=== PATIENT | female | born 1975 | race Caucasian/White ===

== ENCOUNTER 2017-10-17 10:24 | Emergency (ER) | payer MEDICAID ==
[~2017-10-17] VITALS: Ht 165.1 cm; Wt 67.9 kg
[2017-10-17 10:27] VITALS: BP 125/83
== END 2017-10-17 11:23 | disposition home or self-care (01) ==
LOC: ED 11:20
DX: L03.211 Cellulitis of face (principal); J45.909 Unspecified asthma, uncomplicated
CPT/HCPCS: 99283

== ENCOUNTER 2021-04-18 23:56 | Inpatient (IN) | payer MEDICAID, OTHER ==
[~2021-04-18] VITALS: Ht 165.1 cm; Wt 91.9 kg
[2021-04-19 00:53] LABS: BASOPHILS % (AUTO) 1 % (0-1); EOSINOPHILS % (AUTO) 1 % (1-7); LYMPHOCYTES % (AUTO) 20 % (22-44); MEAN CORPUSCULAR HEMOGLOBIN 30.4 pg (27.0-34.8); MEAN CORPUSCULAR HGB CONC 33.5 g/dL (32.4-35.8); MEAN PLATELET VOLUME 7.7 fL (7.4-10.4); MONOCYTES % (AUTO) 8 % (2-9); NEUTROPHILS % (AUTO) 70 % (42-75); PLATELET COUNT 460 x10^3/uL (130-400); RED BLOOD COUNT 5.13 x10^6/uL (3.82-5.3); RED CELL DISTRIBUTION WIDTH 14.7 % (9.6-15.2)
[2021-04-19 00:54] LABS: MD NO
[2021-04-19 00:55] LABS: ANION GAP 6 mmol/L (5-15); CHLORIDE 108 mmol/L (98-107)
--- NOTE | 2021-04-19 01:13 | NUR ---
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
--- NOTE | 2021-04-19 01:39 | NUR ---
erp at bedside for assessment
[2021-04-19] MEDS ORDERED: CEFTRIAXONE 2 GM in DEXTROSE 5% 50 ML IVPB ONE (02:00)
[2021-04-19] MEDS ORDERED: SODIUM CHLORIDE 0.9% 1,000ML IVBOLUS ONE (02:00)
[2021-04-19] MEDS ORDERED: VANCOMYCIN PER PHARMACY MC PRN ×2 (02:00→06:00)
[2021-04-19] MEDS ORDERED: VANCOMYCIN 2,100 MG in SODIUM CHLORIDE 0.9% 500 ML IV ONE (02:30)
--- NOTE | 2021-04-19 02:51 | NUR ---
piv established, 1st set of bc drawn. unable to get another set at this time. awaiting lab to draw. ns fluids running
--- NOTE | 2021-04-19 03:07 | NUR ---
ABX HUNG AFTER BLOOD CULTURES
[2021-04-19] MEDS ORDERED: ALBU1.25 NEB (03:08)
[2021-04-19] MEDS ORDERED: HYDROcodone/APAP 5/325 TABLET ONE (03:25)
[2021-04-19] MEDS ORDERED: HYDROcodone/APAP 5/325 TABLET PO ONE (03:30)
--- NOTE | 2021-04-19 03:53 | NUR ---
pt states she takes tylenol often and is not allergic. report given to val ospina
--- NOTE | 2021-04-19 04:06 | NUR ---
jahaira (friend)- ok to give info too - [phone]
[2021-04-19 04:55] VITALS: BP 120/82
[2021-04-19] MEDS ORDERED: ACETAMINOPHEN 325 MG TABLET PO PRN (06:00)
[2021-04-19] MEDS: NICOTINE 14MG/24 HR PATCH.TD24 TD SCH (06:00)
[2021-04-19] MEDS ORDERED: PHARMACOKINETIC MONITORING MC PRN (06:00)
[2021-04-19] MEDS ORDERED: LABETALOL 5MG/ML, 20ML IVPush PRN (06:00)
[2021-04-19] MEDS ORDERED: PHARMACOKINETIC CONSULTATION MC ONE (06:00)
[2021-04-19] MEDS ORDERED: ONDANSETRON 2MG/ML, 2ML IVPush PRN (06:00)
[2021-04-19] MEDS ORDERED: HYDROmorphone 2 MG/ML, 1ML IVPush PRN (06:00)
[2021-04-19 06:34] LABS: ALBUMIN 3.1 g/dL (3.4-5.0); BILIRUBIN, DIRECT 0.1 mg/dL (0.1-0.2); BILIRUBIN,INDIRECT 0.3 mg/dL (0.0-2.0); BILIRUBIN,TOTAL 0.4 mg/dL (0.2-1.0); TOTAL PROTEIN 6.8 g/dL (6.4-8.2)
[2021-04-19 06:44] VITALS: BP 114/80
[2021-04-19] MEDS: SENNA/DOCUSATE TABLET PO SCH (08:10)
[2021-04-19] MEDS: ENOXAPARIN 40 MG/0.4 ML SQ SCH (08:10)
[2021-04-19] MEDS: HYDROcodone/APAP 5/325 TABLET PO PRN (11:44)
[2021-04-19 13:07] VITALS: BP 106/72
[2021-04-19] MEDS: SODIUM CHLORIDE 0.9% 1,000 ML IV SCH (13:29)
[2021-04-19 16:24] LABS: AMPHETAMINE SCREEN, URINE Positive (Negative); BARBITURATE SCREEN, URINE Negative (Negative); BENZODIAZEPINE SCREEN, URINE Negative (Negative); CANNABINOID SCREEN, URINE Negative (Negative); COCAINE SCREEN, URINE Negative (Negative); METHADONE SCREEN, URINE Negative (Negative); OPIATE SCREEN, URINE Positive (Negative)
[2021-04-19] MEDS: VANCOMYCIN 1,700 MG in SODIUM CHLORIDE 0.9% 250 ML IV SCH (17:40)
[2021-04-19 20:46] VITALS: BP 120/81
[2021-04-19] MEDS ORDERED: VANCOMYCIN 1,600 MG in SODIUM CHLORIDE 0.9% 250 ML IV SCH (21:00)
[2021-04-20 00:55] VITALS: BP 92/50
[2021-04-20] MEDS: CEFTRIAXONE 2 GM in DEXTROSE 5% 50 ML IVPB SCH (03:00)
[2021-04-20] MEDS: SODIUM CHLORIDE 0.9% 1,000 ML IV SCH ×2 (03:05→15:56)
[2021-04-20] MEDS: VANCOMYCIN 1,700 MG in SODIUM CHLORIDE 0.9% 250 ML IV SCH ×2 (04:12→15:56)
[2021-04-20] MEDS: HYDROcodone/APAP 5/325 TABLET PO PRN ×2 (04:44→14:22)
[2021-04-20] MEDS: NICOTINE 14MG/24 HR PATCH.TD24 TD SCH (06:00)
[2021-04-20 06:44] VITALS: BP 93/77
[2021-04-20] MEDS: ENOXAPARIN 40 MG/0.4 ML SQ SCH (07:44)
[2021-04-20] MEDS: SENNA/DOCUSATE TABLET PO SCH (07:50)
[2021-04-20 09:52] LABS: BASOPHILS % (AUTO) 1 % (0-1); EOSINOPHILS % (AUTO) 2 % (1-7); LYMPHOCYTES % (AUTO) 28 % (22-44); MEAN CORPUSCULAR HEMOGLOBIN 30.1 pg (27.0-34.8); MEAN CORPUSCULAR HGB CONC 32.6 g/dL (32.4-35.8); MEAN PLATELET VOLUME 7.7 fL (7.4-10.4); MONOCYTES % (AUTO) 12 % (2-9); NEUTROPHILS % (AUTO) 58 % (42-75); PLATELET COUNT 336 x10^3/uL (130-400); RED BLOOD COUNT 4.67 x10^6/uL (3.82-5.3); RED CELL DISTRIBUTION WIDTH 15.1 % (9.6-15.2)
[2021-04-20 09:56] LABS: MD NO
[2021-04-20 10:03] LABS: ANION GAP 6 mmol/L (5-15); CALCIUM 8.2 mg/dL (8.5-10.1); CHLORIDE 110 mmol/L (98-107); CREATININE 0.96 mg/dL (0.55-1.02)
[2021-04-20 13:18] VITALS: BP 124/90
[2021-04-20 19:16] VITALS: BP 119/88
[2021-04-21 00:10] VITALS: BP 129/92
[2021-04-21] MEDS: CEFTRIAXONE 2 GM in DEXTROSE 5% 50 ML IVPB SCH (03:06)
[2021-04-21 03:39] LABS: BASOPHILS % (AUTO) 1 % (0-1); EOSINOPHILS % (AUTO) 2 % (1-7); LYMPHOCYTES % (AUTO) 21 % (22-44); MEAN CORPUSCULAR HEMOGLOBIN 30.2 pg (27.0-34.8); MEAN CORPUSCULAR HGB CONC 32.2 g/dL (32.4-35.8); MEAN PLATELET VOLUME 7.8 fL (7.4-10.4); MONOCYTES % (AUTO) 13 % (2-9); NEUTROPHILS % (AUTO) 64 % (42-75); PLATELET COUNT 346 x10^3/uL (130-400); RED BLOOD COUNT 4.71 x10^6/uL (3.82-5.3); RED CELL DISTRIBUTION WIDTH 15.5 % (9.6-15.2)
[2021-04-21 03:48] LABS: ANION GAP 7 mmol/L (5-15); CALCIUM 8.4 mg/dL (8.5-10.1); CHLORIDE 111 mmol/L (98-107); CREATININE 0.92 mg/dL (0.55-1.02)
[2021-04-21 03:55] LABS: MD NO
[2021-04-21] MEDS: SODIUM CHLORIDE 0.9% 1,000 ML IV SCH (04:15)
[2021-04-21] MEDS: NICOTINE 14MG/24 HR PATCH.TD24 TD SCH (06:00)
[2021-04-21 06:28] VITALS: BP 123/89
[2021-04-21] MEDS: ENOXAPARIN 40 MG/0.4 ML SQ SCH (07:55)
[2021-04-21] MEDS: SENNA/DOCUSATE TABLET PO SCH (07:55)
[2021-04-21] MEDS ORDERED: SODIUM CHLORIDE NASAL SPRAY 45ML BOTTLE NAS PRN (11:00)
[2021-04-21] MEDS: HYDROcodone/APAP 5/325 TABLET PO PRN (12:47)
[2021-04-21 13:56] VITALS: BP 117/86
[2021-04-21] MEDS ORDERED: VANCOMYCIN 1,700 MG in SODIUM CHLORIDE 0.9% 250 ML IV SCH ×2 (16:00→22:00)
[2021-04-21 19:25] VITALS: BP 119/88
[2021-04-22 02:06] VITALS: BP_SYST 119; BP_SYST 137; BP_DIAS 88; BP_DIAS 93
[2021-04-22] MEDS: CEFTRIAXONE 2 GM in DEXTROSE 5% 50 ML IVPB SCH (02:28)
[2021-04-22] MEDS: NICOTINE 14MG/24 HR PATCH.TD24 TD SCH (05:51)
[2021-04-22 06:17] LABS: BASOPHILS % (AUTO) 1 % (0-1); EOSINOPHILS % (AUTO) 2 % (1-7); LYMPHOCYTES % (AUTO) 24 % (22-44); MEAN CORPUSCULAR HEMOGLOBIN 30.6 pg (27.0-34.8); MEAN CORPUSCULAR HGB CONC 33.6 g/dL (32.4-35.8); MEAN PLATELET VOLUME 7.6 fL (7.4-10.4); MONOCYTES % (AUTO) 13 % (2-9); NEUTROPHILS % (AUTO) 60 % (42-75); PLATELET COUNT 347 x10^3/uL (130-400); RED BLOOD COUNT 4.47 x10^6/uL (3.82-5.3); RED CELL DISTRIBUTION WIDTH 14.9 % (9.6-15.2)
[2021-04-22 06:19] LABS: MD NO
[2021-04-22 06:26] LABS: ANION GAP 6 mmol/L (5-15); CALCIUM 8.4 mg/dL (8.5-10.1); CHLORIDE 111 mmol/L (98-107)
[2021-04-22 07:16] VITALS: BP 132/94
[2021-04-22] MEDS: SENNA/DOCUSATE TABLET PO SCH (07:46)
[2021-04-22] MEDS: ENOXAPARIN 40 MG/0.4 ML SQ SCH (07:46)
[2021-04-22] MEDS: HYDROcodone/APAP 5/325 TABLET PO PRN ×2 (12:47→21:04)
[2021-04-22 14:01] VITALS: BP 126/88
[2021-04-22] MEDS ORDERED: VANCOMYCIN 1,700 MG in SODIUM CHLORIDE 0.9% 250 ML IV SCH (16:00)
[2021-04-22 19:18] VITALS: BP 123/87
[2021-04-23 00:45] VITALS: BP 139/98
[2021-04-23] MEDS: CEFTRIAXONE 2 GM in DEXTROSE 5% 50 ML IVPB SCH (03:26)
[2021-04-23] MEDS: NICOTINE 14MG/24 HR PATCH.TD24 TD SCH (05:13)
[2021-04-23 06:00] LABS: CHLORIDE 110 mmol/L (98-107)
[2021-04-23 06:02] LABS: ANION GAP 7 mmol/L (5-15); CALCIUM 8.5 mg/dL (8.5-10.1); CREATININE 0.77 mg/dL (0.55-1.02)
[2021-04-23 08:04] VITALS: BP 148/105
[2021-04-23] MEDS: SENNA/DOCUSATE TABLET PO SCH (08:14)
[2021-04-23] MEDS: ENOXAPARIN 40 MG/0.4 ML SQ SCH (08:14)
[2021-04-23] MEDS: LEVOFLOXACIN 750 MG TABLET PO SCH (09:11)
[2021-04-23 09:14] VITALS: BP 133/89
[2021-04-23 12:02] VITALS: BP 131/93
[2021-04-23 18:58] VITALS: BP 137/97
[2021-04-24 00:15] VITALS: BP 142/94
[2021-04-24] MEDS: NICOTINE 14MG/24 HR PATCH.TD24 TD SCH (05:08)
[2021-04-24 06:25] VITALS: BP 148/103
[2021-04-24] MEDS: SENNA/DOCUSATE TABLET PO SCH (09:02)
[2021-04-24] MEDS: ENOXAPARIN 40 MG/0.4 ML SQ SCH (09:02)
[2021-04-24] MEDS: LEVOFLOXACIN 750 MG TABLET PO SCH (09:02)
[2021-04-24] MEDS ORDERED: ALBUTEROL SULFATE 2.5 MG/3 ML NPPB PRN (11:00)
[2021-04-24 12:12] VITALS: BP 138/88
[2021-04-24] MEDS: BUDESONIDE 0.5 MG/2 ML INHA INH SCH (19:10)
[2021-04-24] MEDS: ALBUTEROL SULFATE 2.5 MG/3 ML NPPB SCH (19:10)
[2021-04-24 19:29] VITALS: BP 143/88
[2021-04-24 20:19] VITALS: BP 154/98
[2021-04-25 00:37] VITALS: BP 123/79
[2021-04-25] MEDS: NICOTINE 14MG/24 HR PATCH.TD24 TD SCH (05:09)
[2021-04-25 06:40] VITALS: BP 121/68
[2021-04-25] MEDS: BUDESONIDE 0.5 MG/2 ML INHA INH SCH (08:15)
[2021-04-25] MEDS: ALBUTEROL SULFATE 2.5 MG/3 ML NPPB SCH ×2 (08:15→15:15)
[2021-04-25] MEDS: SENNA/DOCUSATE TABLET PO SCH (08:49)
[2021-04-25] MEDS: ENOXAPARIN 40 MG/0.4 ML SQ SCH (08:50)
[2021-04-25] MEDS: LEVOFLOXACIN 750 MG TABLET PO SCH (08:50)
[2021-04-25 12:01] VITALS: BP 132/78
[2021-04-25] MEDS ORDERED: LACT1TAB13 PO (14:44)
[2021-04-25] MEDS ORDERED: LEVO750T6 PO (14:44)
== END 2021-04-25 18:19 | disposition home or self-care (01) | DRG 602 ==
LOC: ED 04-19 00:26 → EDIP 04-19 04:26 → 3N 04-19 04:31
PROVIDERS: ADMIT Family Medicine; ATTEND Internal Medicine
DX: L03.116 Cellulitis of left lower limb (principal); J18.9 Pneumonia, unspecified organism; J96.01 Acute respiratory failure with hypoxia; E66.9 Obesity, unspecified; F15.10 Other stimulant abuse, uncomplicated; F17.210 Nicotine dependence, cigarettes, uncomplicated; I10 Essential (primary) hypertension; I27.20 Pulmonary hypertension, unspecified; F19.10 Other psychoactive substance abuse, uncomplicated; R00.0 Tachycardia, unspecified; I73.9 Peripheral vascular disease, unspecified; A49.01 Methicillin susceptible Staphylococcus aureus infection, unspecified site; J45.909 Unspecified asthma, uncomplicated; Z59.0 Homelessness; Z68.31 Body mass index [BMI] 31.0-31.9, adult; Z90.710 Acquired absence of both cervix and uterus; Z88.5 Allergy status to narcotic agent; Z88.8 Allergy status to other drugs, medicaments and biological substances; Z71.51 Drug abuse counseling and surveillance of drug abuser
CPT/HCPCS: 36415; 84145; 96374; 99285; J7613; J7626; 71045; 80048; 80076; 80202; 80307; 83605; 83880; 85025; 87040; 87070; 87186; 87205; 93005; 93306; 93922; 94640; G0378; J0696; J1170; J1650; J2405; J3370; J7030; J7040; J7050

== ENCOUNTER 2021-05-21 20:41 | Inpatient (IN) | payer MEDICAID, OTHER ==
[~2021-05-21] VITALS: Ht 165.1 cm; Wt 85.3 kg
[~2021-05-21 20:41] MED LIST: ALBU1.25 NEB; LACT1TAB13 PO; LEVO750T6 PO
[2021-05-21 22:29] LABS: BASOPHILS % (AUTO) 1 % (0-1); EOSINOPHILS % (AUTO) 2 % (1-7); LYMPHOCYTES % (AUTO) 11 % (22-44); MEAN CORPUSCULAR HEMOGLOBIN 30.4 pg (27.0-34.8); MEAN CORPUSCULAR HGB CONC 33.3 g/dL (32.4-35.8); MEAN PLATELET VOLUME 8.4 fL (7.4-10.4); MONOCYTES % (AUTO) 12 % (2-9); NEUTROPHILS % (AUTO) 75 % (42-75); PLATELET COUNT 334 x10^3/uL (130-400); RED BLOOD COUNT 4.93 x10^6/uL (3.82-5.3); RED CELL DISTRIBUTION WIDTH 16.1 % (9.6-15.2)
[2021-05-21 22:38] LABS: ALBUMIN 3.2 g/dL (3.4-5.0); ANION GAP 7 mmol/L (5-15); CALCIUM 8.7 mg/dL (8.5-10.1); CHLORIDE 107 mmol/L (98-107); CREATININE 0.92 mg/dL (0.55-1.02)
[2021-05-21 22:41] LABS: TROPONIN I < 0.015 ng/mL (0.000-0.045)
[2021-05-22] MEDS ORDERED: HYDROmorphone 1 MG/ML, 1ML INJ ONE (01:48)
[2021-05-22] MEDS ORDERED: ONDANSETRON 2MG/ML, 2ML ONE (01:48)
[2021-05-22] MEDS ORDERED: SODIUM CHLORIDE 0.9% 1,000ML IVBOLUS ONE (02:00)
[2021-05-22] MEDS ORDERED: AMPICILLIN/SULBACTAM 3 GM in SODIUM CHLORIDE 0.9% 100 ML IV ONE (02:00)
[2021-05-22] MEDS ORDERED: HYDROmorphone 2 MG/ML, 1ML IVPush PRN (02:00)
[2021-05-22] MEDS ORDERED: VANCOMYCIN PER PHARMACY MC ONE (02:00)
[2021-05-22] MEDS ORDERED: ONDANSETRON 2MG/ML, 2ML IVPush ONE (02:00)
[2021-05-22] MEDS ORDERED: SODIUM CHLORIDE FLUSH 10ML SYR IVF ONE (02:00)
[2021-05-22] MEDS ORDERED: VANCOMYCIN 2,000 MG in SODIUM CHLORIDE 0.9% 500 ML IV ONE (02:30)
[2021-05-22] MEDS ORDERED: FUROSEMIDE 40 MG/4 ML IV ONE (03:30)
[2021-05-22] MEDS ORDERED: FUROSEMIDE 40 MG/4 ML ONE (03:47)
[2021-05-22 05:01] VITALS: BP 107/70
[2021-05-22] MEDS ORDERED: GUAIFENESIN/DM 200-20MG, 10ML UDC PO PRN (06:00)
[2021-05-22] MEDS ORDERED: DOCUSATE 100 MG CAPSULE PO PRN (06:00)
[2021-05-22] MEDS ORDERED: BACLOFEN 10 MG TABLET PO PRN (06:00)
[2021-05-22] MEDS ORDERED: ENALAPRILAT 1.25 MG/ML, 2ML IVPush PRN (06:00)
[2021-05-22] MEDS: ENOXAPARIN 40 MG/0.4 ML SQ SCH (06:03)
[2021-05-22] MEDS ORDERED: VANCOMYCIN 2,100 MG in SODIUM CHLORIDE 0.9% 500 ML IV ONE (06:30)
[2021-05-22] MEDS ORDERED: PHARMACOKINETIC CONSULTATION MC ONE (06:30)
[2021-05-22] MEDS ORDERED: VANCOMYCIN PER PHARMACY MC PRN (06:30)
[2021-05-22] MEDS ORDERED: PHARMACOKINETIC MONITORING MC PRN (06:30)
[2021-05-22 06:59] VITALS: BP 113/80
[2021-05-22] MEDS: PIPERACILLIN/TAZO 3.375 GM in DEXTROSE 5% 50 ML IVPB SCH ×3 (08:56→21:43)
[2021-05-22 13:12] VITALS: BP 117/84
[2021-05-22] MEDS ORDERED: FUROSEMIDE 40 MG/4 ML IV SCH (17:00)
[2021-05-22] MEDS: ACETAMINOPHEN 325 MG TABLET PO PRN (17:30)
[2021-05-22 18:34] VITALS: BP 101/70
[2021-05-22] MEDS ORDERED: ZOLPIDEM 5MG TABLET PO PRN (21:00)
[2021-05-23 00:08] VITALS: BP 119/80
[2021-05-23] MEDS: PIPERACILLIN/TAZO 3.375 GM in DEXTROSE 5% 50 ML IVPB SCH ×3 (03:20→15:11)
[2021-05-23] MEDS ORDERED: VANCOMYCIN 1,700 MG in SODIUM CHLORIDE 0.9% 250 ML IV SCH (03:30)
[2021-05-23] MEDS: ENOXAPARIN 40 MG/0.4 ML SQ SCH (05:12)
[2021-05-23] MEDS: ACETAMINOPHEN 325 MG TABLET PO PRN ×2 (05:12→11:15)
[2021-05-23 05:14] LABS: BASOPHILS % (AUTO) 1 % (0-1); EOSINOPHILS % (AUTO) 6 % (1-7); LYMPHOCYTES % (AUTO) 12 % (22-44); MEAN CORPUSCULAR HEMOGLOBIN 30.2 pg (27.0-34.8); MEAN PLATELET VOLUME 8.4 fL (7.4-10.4); MONOCYTES % (AUTO) 11 % (2-9); NEUTROPHILS % (AUTO) 70 % (42-75); PLATELET COUNT 317 x10^3/uL (130-400); RED CELL DISTRIBUTION WIDTH 15.7 % (9.6-15.2)
[2021-05-23 05:20] LABS: ANION GAP 8 mmol/L (5-15); CALCIUM 8.2 mg/dL (8.5-10.1); CHLORIDE 106 mmol/L (98-107)
[2021-05-23 05:21] LABS: CREATININE 1.04 mg/dL (0.55-1.02)
[2021-05-23 06:48] VITALS: BP 121/85
[2021-05-23] MEDS ORDERED: POTASSIUM CHLORIDE 20 MEQ TAB.ER.PRT PO ONE (07:30)
[2021-05-23] MEDS ORDERED: FUROSEMIDE 40 MG/4 ML IV SCH (07:30)
[2021-05-23 12:53] VITALS: BP 109/77
[2021-05-23] MEDS: LEVOFLOXACIN/PMX 750MG/150ML 150 ML IV SCH (16:28)
[2021-05-23] MEDS: MUPIROCIN OINT 2%, 15GM TP SCH (19:14)
[2021-05-23 19:31] VITALS: BP 105/73
[2021-05-24 01:40] VITALS: BP 118/75
[2021-05-24 05:14] LABS: BASOPHILS % (AUTO) 1 % (0-1); EOSINOPHILS % (AUTO) 4 % (1-7); LYMPHOCYTES % (AUTO) 16 % (22-44); MEAN CORPUSCULAR HEMOGLOBIN 30.7 pg (27.0-34.8); MEAN CORPUSCULAR HGB CONC 33.4 g/dL (32.4-35.8); MEAN PLATELET VOLUME 8.2 fL (7.4-10.4); MONOCYTES % (AUTO) 10 % (2-9); NEUTROPHILS % (AUTO) 70 % (42-75); PLATELET COUNT 328 x10^3/uL (130-400); RED BLOOD COUNT 4.47 x10^6/uL (3.82-5.3); RED CELL DISTRIBUTION WIDTH 15.7 % (9.6-15.2)
[2021-05-24 05:23] LABS: CHLORIDE 107 mmol/L (98-107)
[2021-05-24 05:40] LABS: ANION GAP 8 mmol/L (5-15); CALCIUM 8.6 mg/dL (8.5-10.1)
[2021-05-24] MEDS: MUPIROCIN OINT 2%, 15GM TP SCH ×2 (05:45→11:58)
[2021-05-24] MEDS: ENOXAPARIN 40 MG/0.4 ML SQ SCH (05:45)
[2021-05-24 07:38] VITALS: BP 109/73
[2021-05-24] MEDS: ACETAMINOPHEN 325 MG TABLET PO PRN (08:47)
[2021-05-24] MEDS ORDERED: LEVO500T8 PO (13:51)
[2021-05-24 15:09] VITALS: BP 113/78
[2021-05-24] MEDS: LEVOFLOXACIN/PMX 750MG/150ML 150 ML IV SCH (16:48)
== END 2021-05-24 20:00 | disposition home or self-care (01) | DRG 871 ==
LOC: ED 21:11 → EDIP 05-22 04:01 → 3N 05-22 04:57
PROVIDERS: ADMIT Internal Medicine; ATTEND Hospitalist
DX: A41.9 Sepsis, unspecified organism (principal); J96.01 Acute respiratory failure with hypoxia; L03.115 Cellulitis of right lower limb; L03.116 Cellulitis of left lower limb; E66.9 Obesity, unspecified; Z68.31 Body mass index [BMI] 31.0-31.9, adult; E87.6 Hypokalemia; F12.90 Cannabis use, unspecified, uncomplicated; F17.200 Nicotine dependence, unspecified, uncomplicated; I27.29 Other secondary pulmonary hypertension; I27.81 Cor pulmonale (chronic); I50.810 Right heart failure, unspecified; J45.909 Unspecified asthma, uncomplicated; Z82.49 Family history of ischemic heart disease and other diseases of the circulatory system; Z87.01 Personal history of pneumonia (recurrent); Z90.710 Acquired absence of both cervix and uterus
CPT/HCPCS: 36415; 71045; 80048; 82040; 83605; 83880; 84145; 84443; 84484; 85025; 87040; 87070; 87077; 87186; 87205; 93005; 93970; 96374; 96375; G0378; J0295; J1170; J1650; J1940; J1956; J2405; J2543; J3370; J7030; J7040; J7050

== ENCOUNTER 2021-06-30 01:31 | Emergency (ER) | payer MEDICAID ==
[~2021-06-30] VITALS: Ht 167.6 cm; Wt 90.0 kg
[~2021-06-30 01:31] MED LIST changes: +LEVO500T8 PO
[2021-06-30 03:25] VITALS: BP 126/81
[2021-06-30] MEDS ORDERED: DIPHENHYDRAMINE 25 MG CAPSULE PO ONE (04:00)
[2021-06-30] MEDS ORDERED: DIPHENHYDRAMINE 25 MG CAPSULE ONE (04:15)
[2021-06-30] MEDS ORDERED: IBUPROFEN 600 MG TABLET ONE (04:41)
--- NOTE | 2021-06-30 04:58 | NUR ---
Patient/Caregiver given discharge instructions and they have confirmed that they understand the instructions. Patient ambulatory with steady gait. NAD, all questions answered appropriately, denies additional needs at this time. No personal belongings left in room after discharge.
[2021-06-30] MEDS ORDERED: IBUPROFEN 200 MG TABLET PO ONE (05:00)
== END 2021-06-30 05:03 | disposition home or self-care (01) ==
LOC: ED 04:51
DX: L20.89 Other atopic dermatitis (principal); F15.10 Other stimulant abuse, uncomplicated; Z72.9 Problem related to lifestyle, unspecified; J45.909 Unspecified asthma, uncomplicated; F17.200 Nicotine dependence, unspecified, uncomplicated
CPT/HCPCS: 99284; J7512; Q0163

== ENCOUNTER 2021-08-16 23:14 | Inpatient (IN) | payer MEDICAID ==
[~2021-08-16] VITALS: Ht 165.1 cm; Wt 90.2 kg
[2021-08-29 06:38] VITALS: BP 102/71
== END 2021-08-29 17:19 | DRG 871 ==
LOC: ED 23:35 → EDIP 08-17 02:23 → 3N 08-17 07:39
PROVIDERS: ADMIT Family Medicine; ATTEND Internal Medicine
PROC: 0W9G3ZZ Drainage of Peritoneal Cavity, Percutaneous Approach (ICD-10-PCS; principal; 2021-08-17)
PROC: 0T9B70Z Drainage of Bladder with Drainage Device, Via Natural or Artificial Opening (ICD-10-PCS; 2021-08-17)
PROC: 0W9G3ZZ Drainage of Peritoneal Cavity, Percutaneous Approach (ICD-10-PCS; 2021-08-22)
PROC: 0W9G3ZZ Drainage of Peritoneal Cavity, Percutaneous Approach (ICD-10-PCS; 2021-08-27)
PROC: 02HV33Z Insertion of Infusion Device into Superior Vena Cava, Percutaneous Approach (ICD-10-PCS; 2021-08-29)
PROC: B5181ZA Fluoroscopy of Superior Vena Cava using Low Osmolar Contrast, Guidance (ICD-10-PCS; 2021-08-29)
PROC: B548ZZA Ultrasonography of Superior Vena Cava, Guidance (ICD-10-PCS; 2021-08-29)
DX: A41.9 Sepsis, unspecified organism (principal); E43 Unspecified severe protein-calorie malnutrition; J96.20 Acute and chronic respiratory failure, unspecified whether with hypoxia or hypercapnia; K65.2 Spontaneous bacterial peritonitis; I31.3 Pericardial effusion (noninflammatory); J90 Pleural effusion, not elsewhere classified; R18.8 Other ascites; N39.0 Urinary tract infection, site not specified; F32.9 Major depressive disorder, single episode, unspecified; F41.9 Anxiety disorder, unspecified; I07.1 Rheumatic tricuspid insufficiency; I27.29 Other secondary pulmonary hypertension; I27.81 Cor pulmonale (chronic); E66.9 Obesity, unspecified; F19.10 Other psychoactive substance abuse, uncomplicated; F17.210 Nicotine dependence, cigarettes, uncomplicated; I50.813 Acute on chronic right heart failure; J45.909 Unspecified asthma, uncomplicated; K74.60 Unspecified cirrhosis of liver; Z68.31 Body mass index [BMI] 31.0-31.9, adult; Z83.3 Family history of diabetes mellitus; Z71.6 Tobacco abuse counseling; Z80.3 Family history of malignant neoplasm of breast; Z88.5 Allergy status to narcotic agent; Z88.8 Allergy status to other drugs, medicaments and biological substances
CPT/HCPCS: 36415; 82042; 82945; 89051; 96365; 99285; J3490